=== PATIENT | female | born 1950 | race Two or more races ===

== ENCOUNTER 2023-01-30 07:05 | Outpatient (CLI) | payer MEDICARE, OTHER ==
[2023-01-30] MEDS ORDERED: Iopamidol 300 61% 100 ML VIAL FS ONE (10:22)
== END 2023-01-30 07:06 | disposition home or self-care (01) ==
LOC: CSHCT 07:05
PROVIDERS: ATTEND Otolaryngology Plastic Surgery within the Head & Neck
DX: R49.0 Dysphonia (principal); J38.01 Paralysis of vocal cords and larynx, unilateral; E04.1 Nontoxic single thyroid nodule
CPT/HCPCS: 70491; 71260; 82565; Q9967

== ENCOUNTER 2023-03-12 12:18 | Outpatient (CLI) | payer MEDICARE | END 2023-03-12 12:19 | disposition home or self-care (01) | LOC: CSHULT 12:18 | PROVIDERS: ATTEND Otolaryngology Plastic Surgery within the Head & Neck | DX: E04.1 Nontoxic single thyroid nodule (principal) | CPT/HCPCS: 76536 ==

== ENCOUNTER 2023-05-14 09:26 | Outpatient (CLI) | payer MEDICARE ==
[2023-05-14 11:35] LABS: Hematocrit 37.4 % (34.9-44.5); Hemoglobin 12.9 g/dL (12.0-15.5)
[2023-05-14 11:53] LABS: Anion Gap 12 mmol/L (10-20); BUN (Urea Nitrogen) 18 mg/dL (9.8-20.1); Calc. Creatinine Clearance 0 mL/min (70-130); Calcium 9.4 mg/dL (7.8-10.44); Carbon Dioxide 27 mmol/L (23-31); Chloride 98 mmol/L (98-107); Estimated GFR 83; Glucose 87 mg/dL (83-110); Sodium 133 mmol/L (136-145)
== END 2023-05-14 09:27 | disposition home or self-care (01) ==
LOC: CSHLAB 09:26
PROVIDERS: ATTEND Otolaryngology Plastic Surgery within the Head & Neck
DX: Z01.818 Encounter for other preprocedural examination (principal); J38.01 Paralysis of vocal cords and larynx, unilateral
CPT/HCPCS: 80048; 85014; 85018; 93005; 93010

== ENCOUNTER 2023-05-19 06:15 | Day surgery (SDC) | payer MEDICARE ==
[2023-05-14 10:12] VITALS: BMI 21.6
[2023-05-19] MEDS ORDERED: Ondansetron PF 4 MG/2 ML Vial ONE ×2 (07:47→07:48)
[2023-05-19] MEDS ORDERED: Dexamethasone 20 MG/5 ML VIAL ONE (07:47)
[2023-05-19] MEDS ORDERED: PROPOFOL 60 ML ONE (07:47)
[2023-05-19] MEDS ORDERED: fentaNYL 50 mcg/mL 1 mL Vial ONE (07:48)
[2023-05-19] MEDS ORDERED: Midazolam HCl 2 mg/2 ml Vial ONE (07:48)
[2023-05-19] MEDS ORDERED: Glycopyrrolate 0.2 MG/ML 5 ML SYRINGE ONE (07:48)
[2023-05-19] MEDS ORDERED: PROPOFOL 20 ML ONE (07:50)
[2023-05-19] MEDS ORDERED: EPINEPHrine 1 MG/ML VIAL ONE (09:46)
== END 2023-05-19 11:30 | disposition home or self-care (01) ==
LOC: CSHSDC 06:15
PROVIDERS: ATTEND Otolaryngology Plastic Surgery within the Head & Neck
PROC: 3E0F8GC Introduction of Other Therapeutic Substance into Respiratory Tract, Via Natural or Artificial Opening Endoscopic (ICD-10-PCS; principal; 2023-05-19)
DX: J38.01 Paralysis of vocal cords and larynx, unilateral (principal); E04.2 Nontoxic multinodular goiter; Z88.1 Allergy status to other antibiotic agents; Z91.048 Other nonmedicinal substance allergy status; Z90.710 Acquired absence of both cervix and uterus; Z98.890 Other specified postprocedural states; Z88.5 Allergy status to narcotic agent; Z91.018 Allergy to other foods; Z79.899 Other long term (current) drug therapy
CPT/HCPCS: 31571; J0171; J3010; C1763; J1100; J2250; J2405; J2704